=== PATIENT | male | born 1965 | race African-American/Black ===

== ENCOUNTER 2019-06-07 21:40 | Emergency (ER) | payer BC ==
--- NOTE | 2019-06-07 22:11 | EDM.PDOC ---
ED HPI GENERAL MEDICAL PROBLEM - General Chief Complaint: Genitourinary Problem Stated Complaint: ABD PAIN Time Seen by Provider: 06/07/19 22:02 - History of Present Illness INITIAL COMMENTS - FREE TEXT/NARRATIVE: HISTORY AND PHYSICAL: History of present illness: The patient is a 54-year-old male with a history of xty-reugrgt-[id number] diabetes who presents with 2 days of left testicular pain and swelling. The symptoms came on gradually and he denies any trauma to the area and says he has no dysuria frequency hematuria or urgency and he has had no penile discharge. He says that he has not had sexual intercourse in the last 2 days and he has no flank pain. He has no abdominal pain nausea vomiting or diarrhea and no fevers or chills. His last check of his blood sugar was 2 weeks ago and it was 120 and he does not check it on a regular basis. He tells me that 7 years ago he had of testicular swelling which she saw for any gout medications and it went away but he doesn't recall what medication he got or what was wrong. He has no skin lesions or rashes in the region. Review of systems: As per history of present illness and below otherwise all systems reviewed and negative. Past medical history: As per history of present illness and as reviewed below otherwise noncontributory. Surgical history: As per history of present illness and as reviewed below otherwise noncontributory. Social history: No reported history of drug or alcohol abuse. Family history: As per history of present illness and as reviewed below otherwise noncontributory. Physical exam: General: Well-developed well-nourished man who is nontoxic and moves easily in the ED without discomfort or distress. Vital signs are noted by me HEENT: Atraumatic, normocephalic, negative for conjunctival pallor or scleral icterus, mucous membranes moist, throat clear, neck supple, nontender, trachea midline. Lungs: Clear to auscultation, breath sounds equal bilaterally, chest nontender. Heart: S1S2, regular and rhythm no overt murmurs Abdomen: Soft, nondistended, nontender. Negative for masses or hepatosplenomegaly. Negative for costovertebral tenderness. Pelvis: Stable nontender. Genitourinary: There is no inguinal adenopathy and no overt hernial defects on supine exam with Valsalva. Testicles are descended bilaterally and the left is larger than the right but there is no erythema and only minimal tenderness on palpation. The tenderness he has is more diffuse and not specifically at the epididymal head. There are no skin rashes or lesions appreciated and no erythema is appreciated. Rectal: Deferred. Extremities: Atraumatic, negative for cords or calf pain. Neurovascular unremarkable. Neuro: Awake, alert, oriented. Cranial nerves II through XII unremarkable. Cerebellum unremarkable. Motor and sensory unremarkable throughout. Exam nonfocal. Diagnostics: Accu-Chek UA with reflex urine for gonorrhea and chlamydia scrotal ultrasound Therapeutics: Testing results were discussed with the patient and care plan with follow-up with urology and Cipro antibiotic for home were discussed. Impression: Epididymitis left Definitive disposition and diagnosis as appropriate pending reevaluation and review of above. L scrotal Pain Score (Numeric/FACES): 10 - Related Data Allergies Allergy/AdvReac Type Severity Reaction Status Date / Time No Known Allergies Allergy Verified 06/07/19 22:00 Home Meds: Home Meds metFORMIN [Glucophage] 850 mg PO BID 06/07/19 [History] Past Medical History Endocrine/Metabolic History: Reports: Diabetes, Type II - Past Surgical History Endocrine Surgical History: Reports: None Social & Family History - Family History Family Medical History: Noncontributory - Tobacco Use Smoking Status *Q: Never Smoker Second Hand Smoke Exposure: No - Caffeine Use Caffeine Use: Reports: Coffee - Recreational Drug Use Recreational Drug Use: No ED ROS GENERAL - Review of Systems Review Of Systems: ROS reveals no pertinent complaints other than HPI. ED EXAM, GENERAL - Physical Exam Exam: See Below (See dictation) Course - Vital Signs Last Recorded V/S: Last Vital Signs Temp 36.3 C 06/07/19 21:55 Pulse 86 06/07/19 21:55 Resp 17 06/07/19 21:55 BP 120/72 06/07/19 21:55 Pulse Ox 97 06/07/19 21:55 - Orders/Labs/Meds Orders: Active Orders 24 hr Category Date Time Status Blood Glucose Check, Bedside [RC] ONETIME Care 06/07/19 22:06 Active Scrotal Duplex Ltd [US] Stat Exams 06/07/19 22:06 Taken CHLAMYDIA AND GONORRHEA BY TMA Stat Lab 06/07/19 22:12 Received Labs: Laboratory Tests 06/07/19 Range/Units 22:12 Urine Color YELLOW Urine Appearance CLEAR Urine pH 6.0 (5.0-8.0) Ur Specific [place] 1.010 (1.001-1.035) Urine Protein NEGATIVE (NEGATIVE) mg/dL Urine Glucose (UA) NEGATIVE (NEGATIVE) mg/dL Urine Ketones NEGATIVE (NEGATIVE) mg/dL Urine Occult Blood NEGATIVE (NEGATIVE) Urine Nitrite NEGATIVE (NEGATIVE) Urine Bilirubin NEGATIVE (NEGATIVE) Urine Urobilinogen 0.2 (<2.0) EU/dL Ur Leukocyte Esterase NEGATIVE (NEGATIVE) Departure - Departure Time of Disposition: 23:13 Disposition: Home, Self-Care 01 Condition: Good Clinical Impression: Epididymitis - Discharge Information Referrals: PCP,None [Primary Care Provider] - Forms: ED Department Discharge Additional Instructions: The following information is given to patients seen in the emergency department who are being discharged to home. This information is to outline your options for follow-up care. We provide all patients seen in our emergency department with a follow-up referral. The need for follow-up, as well as the timing and circumstances, are variable depending upon the specifics of your emergency department visit. If you don't have a primary care physician on staff, we will provide you with a referral. We always advise you to contact your personal physician following an emergency department visit to inform them of the circumstance of the visit and for follow-up with them and/or the need for any referrals to a consulting specialist. The emergency department will also refer you to a specialist when appropriate. This referral assures that you have the opportunity for followup care with a specialist. All of these measure are taken in an effort to provide you with optimal care, which includes your followup. Under all circumstances we always encourage you to contact your private physician who remains a resource for coordinating your care. When calling for followup care, please make the office aware that this follow-up is from your recent emergency room visit. If for any reason you are refused follow-up, please contact the [facility] emergency department at and ask to speak to the emergency department charge nurse. [facility] [address] [place] [id number] Wear supportive briefs and apply ice as you choose for swelling. Please take antibiotics as directed and continue to monitor your symptoms. Use over-the- counter Tylenol or ibuprofen for pain and call and schedule a follow-up appointment with our urologist using resources given to above. Return to ER as needed and as discussed - My Orders Last 24 Hours: My Active Orders 06/07/19 22:06 Blood Glucose Check, Bedside [RC] ONETIME Scrotal Duplex Ltd [US] Stat 06/07/19 22:12 CHLAMYDIA AND GONORRHEA BY TMA Stat - Assessment/Plan Last 24 Hours: My Active Orders 06/07/19 22:06 Blood Glucose Check, Bedside [RC] ONETIME Scrotal Duplex Ltd [US] Stat 06/07/19 22:12 CHLAMYDIA AND GONORRHEA BY TMA Stat
--- NOTE | 2019-06-07 23:11 | US ---
HISTORY: Left testicular pain and swelling. TECHNIQUE: Testicular ultrasound. COMPARISON: No prior. FINDINGS: Right testicle measures 3.9 x 1.9 x 2.8 cm in size. There are multiple small foci of testicular microlithiasis. No right testicular mass. Normal blood flow is detected within the right testicle without findings of torsion. Right epididymis appears unremarkable. No significant right-sided hydrocele. - Left testicle measures 3.2 x 1.7 x 2.6 cm in size. Left-sided testicular microlithiasis present. There is no left testicular mass. Normal blood flow is detected within the left testicle without findings of torsion. Left epididymis is enlarged and hypervascular compatible with epididymitis. There is a small amount of left hemiscrotal fluid. There is also a soft tissue process with internal vascularity within the left hemiscrotum separate from the testicle and epididymis raising the possibility of a hernia. IMPRESSION: 1. Enlarged hypervascular left epididymis compatible with epididymitis. 2. Small amount of left hemiscrotal fluid. 3. Soft tissue process within the left scrotal sac separate from the testicle and epididymis which could relate to a hernia. A CT of the pelvis with the patient performing Valsalva could be performed for further evaluation for possible hernia. 4. Testicular microlithiasis bilaterally. No testicular mass or torsion. Dictated by Addy Nunez MD @ 06/07/2019 11:09:01 PM Dictated by: Addy Nunez MD @ 06/07/2019 23:09:07 (Electronically Signed)
[2019-06-07 23:32] VITALS: BP 139/75; PULSE 71
--- NOTE | 2019-06-09 15:55 | US ---
HISTORY: Left testicular pain and swelling. TECHNIQUE: Testicular ultrasound. COMPARISON: No prior. FINDINGS: Right testicle measures 3.9 x 1.9 x 2.8 cm in size. There are multiple small foci of testicular microlithiasis. No right testicular mass. Normal blood flow is detected within the right testicle without findings of torsion. Right epididymis appears unremarkable. No significant right-sided hydrocele. Left testicle measures 3.2 x 1.7 x 2.6 cm in size. Left-sided testicular microlithiasis present. There is no left testicular mass. Normal blood flow is detected within the left testicle without findings of torsion. Left epididymis is enlarged and hypervascular compatible with epididymitis. There is a small amount of left hemiscrotal fluid. There is also a soft tissue process with internal vascularity within the left hemiscrotum separate from the testicle and epididymis raising the possibility of a hernia. IMPRESSION: 1. Enlarged hypervascular left epididymis compatible with epididymitis. 2. Small amount of left hemiscrotal fluid. 3. Soft tissue process within the left scrotal sac separate from the testicle and epididymis which could relate to a hernia. A CT of the pelvis with the patient performing Valsalva could be performed for further evaluation for possible hernia. 4. Testicular microlithiasis bilaterally. No testicular mass or torsion. Dictated by Addy Nunez MD @ 06/07/2019 11:09:01 PM Dictated by: Addy Nunez MD @ 06/07/2019 23:09:07 (Electronically Signed) Dictated by: Naun Nunez MD 06/07/19 at 2309 MTDD
== END 2019-06-07 23:31 | disposition home or self-care (01) ==
LOC: MW.ED 21:40
DX: N45.1 Epididymitis (principal); E11.9 Type 2 diabetes mellitus without complications; Z79.84 Long term (current) use of oral hypoglycemic drugs
CPT/HCPCS: 76870; 76870-26; 81003; 87491; 87591; 93976; 93976-26; 99284-25

== ENCOUNTER 2019-06-09 18:25 | Emergency (ER) | payer BC ==
--- NOTE | 2019-06-09 18:42 | EDM.PDOC ---
ED HPI GENERAL MEDICAL PROBLEM - General Chief Complaint: Lower Extremity Injury/Pain Stated Complaint: PAIN IN LEFT LEG Time Seen by Provider: 06/09/19 18:42 Source of Information: Reports: Patient History Limitations: Reports: No Limitations - History of Present Illness INITIAL COMMENTS - FREE TEXT/NARRATIVE: HISTORY AND PHYSICAL: History of present illness: Patient is a 54-year-old male presents to the ED with complaint of left lower extremity swelling and pain. He states he noticed it today. He reports have intermittent bilateral lower extremity swelling but today is just in the left leg. He is currently on antibiotic for epididymitis x 2 days. He denies injury or trauma to the area. Past medical history of diabetes on metformin. Review of systems: As per history of present illness and below otherwise all systems reviewed and negative. Past medical history: As per history of present illness and as reviewed below otherwise noncontributory. Surgical history: As per history of present illness and as reviewed below otherwise noncontributory. Social history: No reported history of drug or alcohol abuse. Family history: As per history of present illness and as reviewed below otherwise noncontributory. Physical exam: General: Patient sitting comfortably in no acute distress and nontoxic appearing HEENT: Atraumatic, normocephalic, pupils reactive, negative for conjunctival pallor or scleral icterus, mucous membranes moist, throat clear, neck supple, nontender, trachea midline. No meningeal signs. Lungs: Clear to auscultation, breath sounds equal bilaterally, chest nontender. Heart: S1S2, regular, negative for clicks, rubs, or overt murmur. Abdomen: Soft, nondistended, nontender. Negative for masses or hepatosplenomegaly. Negative for costovertebral tenderness. No rigidity, rebound , guarding. Pelvis: Stable nontender. Genitourinary: Deferred. Rectal: Deferred. Extremities: There is 1+ pitting edema to the left lower extremity with pain to palpation of the calf. No erythema, skin is intact. Atraumatic, negative for cords. Neurovascular unremarkable. Neuro: Awake, alert, oriented. Cranial nerves II through XII unremarkable. Cerebellum unremarkable. Motor and sensory unremarkable throughout. Exam nonfocal. Notes: Diagnostics: LE venous doppler US Therapeutics: Prescriptions: Xarelto Impression: Deep vein thrombosis left lower extremity Plan: Take xarelto as instructed. Do not take NSAIDs. Follow up with primary care provider as discussed Return to ED as needed as discussed Definitive disposition and diagnosis as appropriate pending reevaluation and review of above. LEFT LEG Pain Score (Numeric/FACES): 10 - Related Data Allergies Allergy/AdvReac Type Severity Reaction Status Date / Time No Known Allergies Allergy Verified 06/09/19 18:28 Home Meds: Home Meds metFORMIN [Glucophage] 850 mg PO BID 06/07/19 [History] Past Medical History Endocrine/Metabolic History: Reports: Diabetes, Type II - Past Surgical History Endocrine Surgical History: Reports: None Social & Family History - Family History Family Medical History: Noncontributory - Tobacco Use Smoking Status *Q: Never Smoker - Caffeine Use Caffeine Use: Reports: Coffee - Recreational Drug Use Recreational Drug Use: No Review of Systems - Review of Systems Review Of Systems: ROS reveals no pertinent complaints other than HPI. ED EXAM, GENERAL - Physical Exam Exam: See Below (see dictation) Course - Vital Signs Last Recorded V/S: Last Vital Signs Temp 97.7 F 06/09/19 19:53 Pulse 80 06/09/19 19:53 Resp 17 06/09/19 19:53 BP 142/79 H 06/09/19 19:53 Pulse Ox 99 06/09/19 19:53 - Orders/Labs/Meds Labs: Laboratory Tests 06/09/19 Range/Units 18:36 POC Glucose 139 H (60-110) mg/dL Departure - Departure Time of Disposition: 19:51 Disposition: Home, Self-Care 01 Condition: Good Clinical Impression: Deep vein thrombosis of left lower extremity - Discharge Information Instructions: Deep Vein Thrombosis Referrals: PCP,None [Primary Care Provider] - Forms: ED Department Discharge Additional Instructions: The following information is given to patients seen in the emergency department who are being discharged to home. This information is to outline your options for follow-up care. We provide all patients seen in our emergency department with a follow-up referral. The need for follow-up, as well as the timing and circumstances, are variable depending upon the specifics of your emergency department visit. If you don't have a primary care physician on staff, we will provide you with a referral. We always advise you to contact your personal physician following an emergency department visit to inform them of the circumstance of the visit and for follow-up with them and/or the need for any referrals to a consulting specialist. The emergency department will also refer you to a specialist when appropriate. This referral assures that you have the opportunity for follow-up care with a specialist. All of these measure are taken in an effort to provide you with optimal care, which includes your follow-up. Under all circumstances we always encourage you to contact your private physician who remains a resource for coordinating your care. When calling for follow-up care, please make the office aware that this follow-up is from your recent emergency room visit. If for any reason you are refused follow-up, please contact the [facility] Emergency Department at and asked to speak to the emergency department charge nurse. [facility] [address] [place] [id number] [facility] [address] [place] [id number] Take xarelto as instructed. Do not take NSAIDs. Follow up with primary care provider as discussed. Return to ED as needed as discussed
--- NOTE | 2019-06-09 19:45 | US ---
INDICATION: Left calf pain TECHNIQUE: Ultrasound venous duplex left lower extremity. [place]-scale, color Doppler, and spectral Doppler imaging were performed with compression and augmentation. COMPARISON: None FINDINGS: Deep veins: Hypoechoic occlusive thrombosis seen within the noncompressible popliteal and visualized calf veins. The left common femoral and femoral veins are patent and compressible. Superficial veins: The visualized greater saphenous and superficial veins of the leg and calf are unremarkable. Soft tissue: No masses or cysts are identified. There is a large left inguinal lymph node present measuring 1.3 cm. Mild subcutaneous edema is present within the left calf. IMPRESSION: 1. Hypoechoic occlusive thrombosis seen within the noncompressible popliteal and visualized calf veins. 2. There is a large left inguinal lymph node present measuring 1.3 cm. The findings were discussed with physician assistant farm operations manager Catarino at 7:44 PM. Dictated by Salas Morrell MD @ 06/09/2019 7:41:26 PM Dictated by: Salas Morrell MD @ 06/09/2019 19:44:28 (Electronically Signed)
[2019-06-09 19:54] VITALS: BP 142/79; PULSE 80
== END 2019-06-09 20:03 | disposition home or self-care (01) ==
LOC: MW.ED 18:25
DX: I82.432 Acute embolism and thrombosis of left popliteal vein (principal); E11.9 Type 2 diabetes mellitus without complications; Z79.84 Long term (current) use of oral hypoglycemic drugs
CPT/HCPCS: 82962; 93971-26-LT; 93971-LT; 99283; 99284-25

== ENCOUNTER 2019-09-29 18:36 | Emergency (ER) | payer BC, OTHER ==
--- NOTE | 2019-09-29 21:33 | EDM.PDOC ---
ED HPI GENERAL MEDICAL PROBLEM - General Chief Complaint: Genitourinary Problem Stated Complaint: SICK Time Seen by Provider: 09/29/19 20:34 Source of Information: Reports: Patient History Limitations: Reports: No Limitations - History of Present Illness INITIAL COMMENTS - FREE TEXT/NARRATIVE: HISTORY AND PHYSICAL: History of present illness: Patient is a 54-year-old male who presents to the ED today with concern of left testicular pain over the past 1 day. Patient states that he has had testicular pain a few months ago and was given antibiotic at that time which resolved his testicular pain. Patient states that he has not had any sexual partners in the past year and does not have an increased risk for a sexually transmitted infection. Patient states that the testicle is more tender when he touches it. Patient denies any penile drainage or any other associated symptoms. Patient denies fever, chills, chest pain, shortness of breath, or cough. Denies headache, neck stiff ness, change in vision, syncope, or near syncope. Denies nausea, vomiting, abdominal pain, diarrhea, constipation, or dysuria. Has not noted any blood in urine or stool. Patient has been eating and drinking appropriately. Review of systems: As per history of present illness and below otherwise all systems reviewed and negative. Past medical history: As per history of present illness and as reviewed below otherwise noncontributory. Surgical history: As per history of present illness and as reviewed below otherwise noncontributory. Social history: See social history for further information Family history: As per history of present illness and as reviewed below otherwise noncontributory. Physical exam: General: Patient is alert, oriented, and in no acute distress. Patient sitting comfortably on exam table. HEENT: Atraumatic, normocephalic, pupils equal and reactive bilaterally, negative for conjunctival pallor or scleral icterus, mucous membranes moist, TMs normal bilaterally, throat clear, neck supple, nontender, trachea midline. No drooling or trismus noted. No meningeal signs. No hot potato voice noted. Lungs: Clear to auscultation, breath sounds equal bilaterally, chest nontender. Heart: S1S2, regular rate and rhythm without overt murmur Abdomen: Soft, nondistended, nontender. Negative for masses or hepatosplenomegaly. Negative for costovertebral tenderness. Pelvis: Stable nontender. 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 There is no penile drainage noted on exam. No rashes, lesions, or masses noted. Patient does have mild discomfort with palpation of the epididymitis. No obvious hernias felt. Rectal: Deferred. Skin: Intact, warm, dry. No lesions or rashes noted. Extremities: Atraumatic, negative for cords or calf pain. Neurovascular unremarkable. Neuro: Awake, alert, oriented. Cranial nerves II through XII unremarkable. Cerebellum unremarkable. Motor and sensory unremarkable throughout. Exam nonfocal. Notes: Discussed importance for follow-up with a urology. Voices understanding and is agreeable to plan of care. Denies any further questions or concerns at this time. Diagnostics: UA, gonorrhea/chlamydia, testicular US Therapeutics: None Prescription: Ciprofloxacin Impression: Epididymitis, left Plan: 1. Take medication as prescribed. You can alternate ibuprofen and Tylenol as directed for pain and discomfort. 2. Follow-up with the urologist as discussed. The number has been provided above for you to call and establish an appointment time. 3. Return to the ED as needed and as discussed. Definitive disposition and diagnosis as appropriate pending reevaluation and review of above. Scrotum Pain Score (Numeric/FACES): 10 - Related Data Allergies Allergy/AdvReac Type Severity Reaction Status Date / Time No Known Allergies Allergy Verified 09/29/19 19:30 Home Meds: Home Meds . [Unable to Verify Home Med List] 09/29/14 [History] metFORMIN [Glucophage] 850 mg PO BID 06/07/19 [History] Past Medical History Endocrine/Metabolic History: Reports: Diabetes, Type II - Infectious Disease History Infectious Disease History: Reports: None - Past Surgical History Endocrine Surgical History: Reports: None Social & Family History - Family History Family Medical History: Noncontributory - Tobacco Use Smoking Status *Q: Never Smoker Second Hand Smoke Exposure: No - Caffeine Use Caffeine Use: Reports: None ED ROS GENERAL - Review of Systems Review Of Systems: Comprehensive ROS is negative, except as noted in HPI. ED EXAM, GENERAL - Physical Exam Exam: See Below (see dictation) Course - Vital Signs Last Recorded V/S: Last Vital Signs Temp 99.1 F 09/29/19 19:30 Pulse 73 09/29/19 22:00 Resp 20 09/29/19 22:00 BP 155/92 H 09/29/19 22:00 Pulse Ox 98 09/29/19 22:00 - Orders/Labs/Meds Orders: Active Orders 24 hr Category Date Time Status Scrotal Duplex Ltd [US] Stat Exams 09/29/19 21:04 Taken CHLAMYDIA AND GONORRHEA BY [facility] Stat Lab 09/29/19 20:52 Received Labs: Laboratory Tests 09/29/19 Range/Units 20:52 Urine Color YELLOW Urine Appearance CLEAR Urine pH 5.5 (5.0-8.0) Ur Specific [place] 1.020 (1.001-1.035) Urine Protein NEGATIVE (NEGATIVE) mg/dL Urine Glucose (UA) NEGATIVE (NEGATIVE) mg/dL Urine Ketones NEGATIVE (NEGATIVE) mg/dL Urine Occult Blood NEGATIVE (NEGATIVE) Urine Nitrite NEGATIVE (NEGATIVE) Urine Bilirubin NEGATIVE (NEGATIVE) Urine Urobilinogen 0.2 (<2.0) EU/dL Ur Leukocyte Esterase NEGATIVE (NEGATIVE) Departure - Departure Time of Disposition: 22:02 Disposition: Home, Self-Care 01 Clinical Impression: Epididymitis - Discharge Information Referrals: PCP,None [Primary Care Provider] - Forms: ED Department Discharge Additional Instructions: The following information is given to patients seen in the emergency department who are being discharged to home. This information is to outline your options for follow-up care. We provide all patients seen in our emergency department with a follow-up referral. The need for follow-up, as well as the timing and circumstances, are variable depending upon the specifics of your emergency department visit. If you don't have a primary care physician on staff, we will provide you with a referral. We always advise you to contact your personal physician following an emergency department visit to inform them of the circumstance of the visit and for follow-up with them and/or the need for any referrals to a consulting specialist. The emergency department will also refer you to a specialist when appropriate. This referral assures that you have the opportunity for follow-up care with a specialist. All of these measure are taken in an effort to provide you with optimal care, which includes your follow-up. Under all circumstances we always encourage you to contact your private physician who remains a resource for coordinating your care. When calling for follow-up care, please make the office aware that this follow-up is from your recent emergency room visit. If for any reason you are refused follow-up, please contact the [facility] Emergency Department at and asked to speak to the emergency department charge nurse. JUSTIN [facility] [address] [place] [id number] [facility] [address] [place] [address] [facility] [address] [place] [address] 1. Take medication as prescribed. You can alternate ibuprofen and Tylenol as directed for pain and discomfort. 2. Follow-up with the urologist as discussed. The number has been provided above for you to call and establish an appointment time. 3. Return to the ED as needed and as discussed. Sepsis Event Note - Evaluation Sepsis Screening Result: No Definite Risk - Focused Exam Vital Signs: Vital Signs Temp Pulse Resp BP Pulse Ox 09/29/19 22:00 73 20 155/92 H 98 09/29/19 19:30 99.1 F 84 16 177/90 H 98 Date Exam was Performed: 09/29/19 Time Exam was Performed: 22:02 - My Orders Last 24 Hours: My Active Orders 09/29/19 20:52 CHLAMYDIA AND GONORRHEA BY [facility] Stat - Assessment/Plan Last 24 Hours: My Active Orders 09/29/19 20:52 CHLAMYDIA AND GONORRHEA BY [facility] Stat
--- NOTE | 2019-09-29 21:56 | US ---
INDICATION: Left testicular pain TECHNIQUE: Ultrasound of the scrotum and contents. Sonographic billy scale images were obtained with spectral and color Doppler waveform and spectral waveform analysis of the testicles. COMPARISON: None FINDINGS: Right testicle: 4.0 centimeter x 2.1 centimeter x 3.0 centimeter. Normal echotexture. No masses. No suspicious calcifications. Testicular microlithiasis. Normal arterial and venous and blood flow using Doppler and spectral waveform analysis. Left testicle: 2.8 centimeter x 1.6 centimeter x 2.4 centimeter. Normal echotexture. No masses. No suspicious calcifications. Testicular microlithiasis. Normal arterial and venous and blood flow using Doppler and spectral waveform analysis. Epididymis: Unremarkable bilaterally. Normal blood flow. Other: No sign of hydrocele. No sign of varicocele. Scrotal wall is normal. IMPRESSION: Bilateral testicular microlithiasis, the testicles are otherwise normal in appearance. Dictated by Hemanth Felton MD @ 09/29/2019 9:55:23 PM Dictated by: Hemanth Felton MD @ 09/29/2019 21:55:31 (Electronically Signed)
[2019-09-29 22:01] VITALS: BP 155/92; PULSE 73
--- NOTE | 2019-09-30 13:22 | US ---
EXAM DATE: 09/29/19 PATIENT'S AGE: 54 Patient: IVORY BELL Facility: [facility] Site . Site : [id number] Study: US-Testicle -09/29/2019 9:31:50 PM Ordering Physician: Shashi Olvera Final Report: INDICATION: Left testicular pain TECHNIQUE: Ultrasound of the scrotum and contents. Sonographic billy scale images were obtained with spectral and color Doppler waveform and spectral waveform analysis of the testicles. COMPARISON: None FINDINGS: Right testicle: 4.0 centimeter x 2.1 centimeter x 3.0 centimeter. Normal echotexture. No masses. No suspicious calcifications. Testicular microlithiasis. Normal arterial and venous and blood flow using Doppler and spectral waveform analysis. Left testicle: 2.8 centimeter x 1.6 centimeter x 2.4 centimeter. Normal echotexture. No masses. No suspicious calcifications. Testicular microlithiasis. Normal arterial and venous and blood flow using Doppler and spectral waveform analysis. Epididymis: Unremarkable bilaterally. Normal blood flow. Other: No sign of hydrocele. No sign of varicocele. Scrotal wall is normal. IMPRESSION: Bilateral testicular microlithiasis, the testicles are otherwise normal in appearance. Dictated by Hemanth Felton MD @ 09/29/2019 9:55:23 PM Dictated by: Hemanth Felton MD @ 09/29/2019 21:55:31 Signed by: Hemanth Felton MD @09/29/2019 9:55:31 PM (Electronic Signature) Report Signed by Proxy. JASWANT
== END 2019-09-29 22:07 | disposition home or self-care (01) ==
LOC: MW.ED 18:36
DX: N45.1 Epididymitis (principal); E11.9 Type 2 diabetes mellitus without complications; Z79.84 Long term (current) use of oral hypoglycemic drugs
CPT/HCPCS: 76870; 76870-26; 81003; 87491; 87591; 93976; 93976-26; 99283; 99284-25